=== PATIENT | female | born 1955 | race Caucasian/White ===

== ENCOUNTER → 2022-08-23 | Outpatient (CLI) | payer MEDICARE, OTHER | END | disposition home or self-care (01) | LOC: RESCLI 07:23 | PROVIDERS: ATTEND Internal Medicine | DX: E11.9 Type 2 diabetes mellitus without complications (principal); I11.0 Hypertensive heart disease with heart failure; I50.9 Heart failure, unspecified; H40.9 Unspecified glaucoma; E03.9 Hypothyroidism, unspecified; E56.9 Vitamin deficiency, unspecified; E55.9 Vitamin D deficiency, unspecified; E78.5 Hyperlipidemia, unspecified; E53.8 Deficiency of other specified B group vitamins; Z81.8 Family history of other mental and behavioral disorders; Z87.891 Personal history of nicotine dependence; Z98.890 Other specified postprocedural states; Z79.84 Long term (current) use of oral hypoglycemic drugs; Z79.899 Other long term (current) drug therapy; Z79.82 Long term (current) use of aspirin ==

== ENCOUNTER → 2023-09-05 | Outpatient (CLI) | payer MEDICARE, OTHER | END | disposition home or self-care (01) | LOC: RESCLI 02:30 | PROVIDERS: ATTEND Internal Medicine | DX: E11.9 Type 2 diabetes mellitus without complications (principal); E78.5 Hyperlipidemia, unspecified; E55.9 Vitamin D deficiency, unspecified; I50.9 Heart failure, unspecified; E56.9 Vitamin deficiency, unspecified; E53.8 Deficiency of other specified B group vitamins; I10 Essential (primary) hypertension; H40.9 Unspecified glaucoma; E03.9 Hypothyroidism, unspecified; J32.9 Chronic sinusitis, unspecified; Z98.890 Other specified postprocedural states; Z79.84 Long term (current) use of oral hypoglycemic drugs; Z79.899 Other long term (current) drug therapy ==

== ENCOUNTER → 2024-09-03 | Outpatient (CLI) | payer MEDICARE, OTHER | END | disposition home or self-care (01) | LOC: RESCLI 05:09 | PROVIDERS: ATTEND Internal Medicine | DX: E11.9 Type 2 diabetes mellitus without complications (principal); E78.5 Hyperlipidemia, unspecified; E56.9 Vitamin deficiency, unspecified; I11.0 Hypertensive heart disease with heart failure; I50.9 Heart failure, unspecified; J32.9 Chronic sinusitis, unspecified; H40.9 Unspecified glaucoma; E03.9 Hypothyroidism, unspecified; Z79.899 Other long term (current) drug therapy; Z79.82 Long term (current) use of aspirin ==